=== PATIENT | female | born 1985 | race Caucasian/White ===

== ENCOUNTER 2016-05-30 13:02 | Emergency (ER) | payer OTHER ==
[2016-05-30 13:08] VITALS: BP 166/86; BMI 64.9
--- NOTE | 2016-05-30 15:07 | DR.GENAD ---
HPI - PCP Primary Care Physician: ZANA - Complaint/Symptoms Chief Complaint Doctors Comments: Patient admits to headache, chills, myalgias for two days. Chief Complaint:: CHEST AND NASAL CONGESTION, HEADACHE - Source History Provided: Patient - Mode of Arrival Mode of Arrival: Ambulatory - Timing Onset of Chief Complaint: 05/28/16 PMH - PMH Past Medical History: No Past Medical History: Anxiety Past Surgical History: Yes Surgical History: , Ortho Surgery - Family History History of Family Medical Conditions: No - Social History Alcohol Use: None Do you use any recreational Drugs:: No Lives With: Family Lives Where: Home - infectious screening In the last 2 months have you had wt loss of >10#?: NO Have you had fever, night sweats or hemotysis?: No Have you traveled outside the country in the last 6 months?: No Isolation: Standard ROS - Review of Systems Constitutional: No Symptoms Reported Eyes: No Symptoms Reported ENTM: No Symptoms Reported Respiratoy: No Symptoms Reported Cardiovascular: No Symptoms Reported Gastrointestinal/Abdominal: No Symptoms Reported Genitourinary: No Symptoms Reported Neurological: Headache Musculoskeletal: Muscle Pain Integumentary: No Symptoms Reported Hematologic/Lymphatic: No Symptoms Reported Endocrine: No Symptoms Reported Psychiatric: No Symptoms Reported All Other Systems: Reviewed and Negative PE - Vital Signs Vitals: Temperature 99.0 F Pulse Rate 108 Respiratory Rate 16 Blood Pressure 166/86 O2 Sat by Pulse Oximetry 96 - General Limitations: No Limitations General Appearance: Alert - Eyes Eye exam: Normal Appearance, PERRL, EOMI - ENT ENT Exam: Normal Exam External Ear Exam: Normal External Inspection TM/Canal Exam: Bilateral Normal Nose Exam: Normal Nose Exam Mouth Exam: Normal Inspection Throat Exam: Normal Inspection - Neck Neck Exam: Normal Inspection - Chest Chest Inspection: Normal Inspection - Respiratory Respiratory Exam: Bilateral Clear to Auscultation - Cardiovascular Cardiovascular Exam: Regular Rate, Normal Rhythm - Abdominal Exam Abdominal Exam: Normal Inspection Abdominal Tenderness: negative: RUQ, RLQ, LUQ, LLQ, Epigastrium, Suprapubic, Diffuse, Mild, Moderate, Severe, Other - Extremities Extremities Exam: Normal Inspection - Back Back Exam: Normal Inspection - Neurologic Neurological Exam: Alert, Oriented X3, CN II-XII Intact - Psychiatric Psychiatric Exam: Normal Affect, Normal Mood - Skin Skin Exam: Warm, Dry, Intact - Diagnosis Discharge Problem: Influenza-like symptoms - Discharge Plan Condition: Stable - Follow ups/Referrals Follow ups/Referrals: Rubin SPANN [Primary Care Provider] - 3 days - Instructions
== END 2016-05-30 15:36 | disposition home or self-care (01) ==
LOC: ER 13:18
DX: J11.1 Influenza due to unidentified influenza virus with other respiratory manifestations (principal)
CPT/HCPCS: 87502; 87503; 99282

== ENCOUNTER 2016-11-17 07:31 | Emergency (ER) | payer OTHER ==
[2016-11-17 07:39] VITALS: BP 179/94; BMI 58.2
[2016-11-17 08:49] LABS: BASOPHILS % (AUTO) 0.6 % (0.2-1.0); EOSINOPHILS # (AUTO) 0.2 x10^3/uL (0.0-0.2); EOSINOPHILS % (AUTO) 2.5 % (0.9-2.9); HEMATOCRIT 37.4 % (36.0-47.0); LYMPHOCYTES # (AUTO) 2.1 X10^3/uL (1.3-2.9); LYMPHOCYTES % (AUTO) 29.8 % (21.0-51.0); MEAN CORPUSCULAR HEMOGLOBIN 32.7 pg (27.0-34.0); MEAN CORPUSCULAR HGB CONC 34.8 g/dL (33.0-35.0); MEAN CORPUSCULAR VOLUME 93.9 fL (80.0-100.0); MEAN PLATELET VOLUME 7.8 fL (7.4-11.0); MONOCYTES # (AUTO) 0.5 x10^3/uL (0.3-0.8); NEUTROPHILS # (AUTO) 4.3 x10^3/uL (2.2-4.8); NEUTROPHILS % (AUTO) 60.1 % (42.0-75.0); PLATELET COUNT 289 X10^3/uL (150.0-450.0); RED BLOOD COUNT 3.98 X10^6/uL (3.5-5.4); RED CELL DISTRIBUTION WIDTH 13.3 % (11.6-16.5); WHITE BLOOD COUNT 7.1 X10^3/uL (3.6-10.0)
--- NOTE | 2016-11-17 08:53 | DR.GENAD ---
HPI - HPI Comment HPI Comment: PATIENT DENIES FEVER. PAIN WORSE TODAY. - Complaint/Symptoms Chief Complaint Doctors Comments: SWELLING, REDNESS AND INCREASE IN TEMP ON LEGS TIMES 6 DAYS. REDNESS EXTENDING. Chief Complaint:: "For about 6 days my legs have been swelling and getting red. I also had a small mosquito bite that seems to be draining some clear discharge. My legs usually swells, but they never look shiny like this and they never feel hot." - Nurses notes reviewed Nurses Notes Review: Yes - Source History Provided: Patient - Mode of Arrival Mode of Arrival: Ambulatory - Timing Onset of Chief Complaint: 11/11/16 Came on: Suddenly - Duration Duration: Constant Duration: Days - Severity Severity: Moderate PMH - PMH Past Medical History: Yes Past Medical History: Anxiety Past Surgical History: Yes Surgical History: , Ortho Surgery Past Surgical History Comment: Right elbow ortho surgery - Family History History of Family Medical Conditions: Yes Family Medical History: Diabetes Mellitus, Cancer, Hypertension - Social History Does patient currently use any type of tobacco product: No Have you used tobacco products in the last 12 months: No Type of Tobacco Use: None Does any household member use tobacco: No Alcohol Use: None Do you use any recreational Drugs:: No Lives With: Family Lives Where: Home - infectious screening In the last 2 months have you had wt loss of >10#?: NO Have you had fever, night sweats or hemotysis?: No Have you traveled outside the country in the last 6 months?: No Isolation: Standard ROS - Review of Systems Constitutional: No Symptoms Reported Eyes: No Symptoms Reported ENTM: No Symptoms Reported Respiratoy: No Symptoms Reported Cardiovascular: No Symptoms Reported Gastrointestinal/Abdominal: No Symptoms Reported Genitourinary: No Symptoms Reported Neurological: No Symptoms Reported Musculoskeletal: Leg Integumentary: Other (SWELLING ANDC REDNESS LEGS AND FEET. PULSES INTACT.) Hematologic/Lymphatic: No Symptoms Reported Endocrine: No Symptoms Reported All Other Systems: Reviewed and Negative PE - Vital Signs Vitals: Temperature 98.5 F Pulse Rate 80 Respiratory Rate 18 Blood Pressure 179/94 O2 Sat by Pulse Oximetry 99 - General Limitations: No Limitations General Appearance: Alert - Head Head Exam: Normal Inspection - Eyes Eye exam: Normal Appearance - ENT ENT Exam: Normal External Ear Exam External Ear Exam: Normal External Inspection TM/Canal Exam: Left Normal Nose Exam: Normal Nose Exam Mouth Exam: Normal Inspection Throat Exam: Normal Inspection - Neck Neck Exam: Normal Inspection - Chest Chest Inspection: Normal Inspection - Respiratory Respiratory Exam: Normal Lung Sounds Bilat Respiratory Exam: Bilateral Clear to Auscultation - Cardiovascular Cardiovascular Exam: Regular Rate, Normal Rhythm, Normal Heart Sounds - Abdominal Exam Abdominal Exam: Normal Bowel Sounds, Soft. negative: Tenderness - Extremities Extremities Exam: Tenderness (LEGS AND FEET.) - Back Back Exam: Normal Inspection - Neurologic Neurological Exam: Alert, Oriented X3 - Psychiatric Psychiatric Exam: Normal Affect, Normal Mood - Skin Skin Exam: Erythema MDM - Differential Diagnosis Differential Diagnosis: CELLULITIS, DVT, EDEMA Course - Treatment Treatment: SEE ORDERS. - Education/Counseling Education/Counseling: Patient, Education Educated On: Diagnosis, Needs for Follow Up ROR - Labs Reviewed Laboratory Results Reviewed?: Yes Result Diagrams: 11/17/16 08:30 Laboratory: WBC 7.1 X10^3/uL (3.6-10.0) 11/17/16 08:30 RBC 3.98 X10^6/uL (3.5-5.4) 11/17/16 08:30 Hgb 13.0 g/dL (12.0-16.0) 11/17/16 08:30 Hct 37.4 % (36.0-47.0) 11/17/16 08:30 MCV 93.9 fL (80.0-100.0) 11/17/16 08:30 MCH 32.7 pg (27.0-34.0) 11/17/16 08:30 MCHC 34.8 g/dL (33.0-35.0) 11/17/16 08:30 RDW 13.3 % (11.6-16.5) 11/17/16 08:30 Plt Count 289 X10^3/uL (150.0-450.0) 11/17/16 08:30 MPV 7.8 fL (7.4-11.0) 11/17/16 08:30 Neut % 60.1 % (42.0-75.0) 11/17/16 08:30 Lymph % 29.8 % (21.0-51.0) 11/17/16 08:30 [place] % 7.0 % (0.0-13.0) 11/17/16 08:30 Eos % 2.5 % (0.9-2.9) 11/17/16 08:30 Baso % 0.6 % (0.2-1.0) 11/17/16 08:30 Neut # 4.3 x10^3/uL (2.2-4.8) 11/17/16 08:30 Lymph # 2.1 X10^3/uL (1.3-2.9) 11/17/16 08:30 [place] # 0.5 x10^3/uL (0.3-0.8) 11/17/16 08:30 Eos # 0.2 x10^3/uL (0.0-0.2) 11/17/16 08:30 Baso # 0.0 X10^3/uL (0.0-0.1) 11/17/16 08:30 Absolute Nucleated RBC 0.0 /100WBC 11/17/16 08:30 D-Dimer 254 ng/mL (0-400) 11/17/16 08:30 - Diagnosis Discharge Problem: Cellulitis of lower extremity Qualifiers: Laterality: right Qualified Code(s): L03.115 - Cellulitis of right lower limb - Discharge Plan Condition: Stable Prescriptions: Acetaminophen with Codeine [Tylenol/Codeine #3 300-30 mg] 1 tab PO Q4-6H PRN # 12 tab PRN Reason: Pain Clindamycin HCl 300 mg PO Q6H #40 cap Ibuprofen [MOTRIN TAB 800 MG *] 800 mg PO Q8H PRN #20 tab PRN Reason: Pain/Inflammation - Follow ups/Referrals Follow ups/Referrals: Rubin SPANN [Primary Care Provider] - 3 days - Instructions Instructions: Cellulitis, Adult, [id number] Additional Instructions: RETURN TO ED IF WORSE.
== END 2016-11-17 10:09 | disposition home or self-care (01) ==
LOC: ER 07:44
DX: L03.115 Cellulitis of right lower limb (principal)
CPT/HCPCS: 36415; 85025; 85378; 99282

== ENCOUNTER 2017-11-22 06:20 | Inpatient (IN) ==
[2017-11-22] MEDS ORDERED: SOLU-Medrol 125 MG VIAL IVP ONE (06:36)
[2017-11-22] MEDS ORDERED: DUONEB 0.5 MG/3 MG NEB ONE ×2 (06:36→07:04)
[2017-11-22] MEDS ORDERED: SOLU-Medrol 125 MG VIAL ONE (06:39)
[2017-11-22] MEDS ORDERED: DUONEB 0.5 MG/3 MG ONE ×2 (06:39→07:10)
[2017-11-22] MEDS ORDERED: NS 1000 ML 1,000 ML ONE ×2 (06:49→11:35)
--- NOTE | 2017-11-22 06:49 | DR.SOBA ---
HPI Time Seen Time Seen by Provider: 11/22/17 06:33 Complaints Chief Complaint Doctors Comments: Patient presents to the ED with a one week history of upper respiratory problems. Today she became severe short of breath. She denies fever, some or previous respiratory illness. PMH PMH Past Medical History: Anxiety Past Surgical History: Yes Surgical History: and Ortho Surgery Family History Family Medical History: Diabetes Mellitus, Cancer and Hypertension Social History Do you use any recreational Drugs:: No PE Vital Signs Vitals: Temperature 100.1 F Pulse Rate [Right Brachial] 119 Pulse Rate 123 Respiratory Rate 28 Blood Pressure [Right Arm] 126/71 Blood Pressure 137/91 O2 Sat by Pulse Oximetry 89 General Limitations: No Limitations; negative Altered Mental Status General Appearance: Alert, Anxious and In Distress Head Head Exam: Normal Inspection and Atraumatic Eyes Eye exam: Normal Appearance, PERRL, EOMI and Scleral Icterus ENT ENT Exam: Normal Exam, Normal Oropharynx, Mucous Membranes Moist, Mucous Membranes Dry and TM's Normal Bilaterally Neck Neck Exam: Normal Inspection and Full ROM Chest Chest Inspection: Normal Inspection Respiratory Respiratory Exam: Normal Lung Sounds Bilat (decreased), Accessory Muscle Use and Prolonged Expiratory Phase Respiratory Exam: Bilateral: Wheezing and Bilateral: Decreased Breath Sounds Cardiovascular Cardiovascular Exam: Regular Rate and Normal Rhythm Abdominal Exam Abdominal Exam: Normal Inspection, Soft, Distention and Hypoactive Bowel Sounds Extremities Extremities Exam: Normal Inspection and Full ROM Back Back Exam: Normal Inspection and Full ROM Neurologic Neurological Exam: Alert, Oriented X3 and CN II-XII Intact Psychiatric Psychiatric Exam: Normal Affect, Normal Mood and Agitated Skin Skin Exam: Warm, Dry and Normal Color COURSE Treatment Treatment: Patient in respiratory distress given duo neb treatment with little improvement ABG obtained, started on Bipap Reevaluation 1st: Improved Consultation Called: 08:00 Consultation Comments: Dr. Benitez agree to admit for further evaluation and treatment ROR Labs Reviewed Laboratory Results Reviewed?: Yes Result Diagrams: 11/22/17 06:33 11/22/17 06:33 Laboratory: 11/22/17 07:39 Sputum - Expectorated Sputum Sputum Culture - Preliminary 11/22/17 07:39 Sputum - Expectorated Sputum - Final 11/22/17 07:38 Urine,Catheterized Urine Culture - Final WBC 18.9 X10^3/uL (3.6-10.0) H 11/22/17 06:33 RBC 4.47 X10^6/uL (3.5-5.4) 11/22/17 06:33 Hgb 15.1 g/dL (12.0-16.0) 11/22/17 06:33 Hct 42.5 % (36.0-47.0) 11/22/17 06:33 MCV 95.1 fL (80.0-100.0) 11/22/17 06:33 MCH 33.7 pg (27.0-34.0) 11/22/17 06:33 MCHC 35.5 g/dL (33.0-35.0) H 11/22/17 06:33 RDW 13.0 % (11.6-16.5) 11/22/17 06:33 Plt Count 402 X10^3/uL (150.0-450.0) 11/22/17 06:33 MPV 8.2 fL (7.4-11.0) 11/22/17 06:33 Neut % (Auto) 80.1 % (42.0-75.0) H 11/22/17 06:33 Lymph % (Auto) 10.2 % (21.0-51.0) L 11/22/17 06:33 [place] % (Auto) 9.2 % (0.0-13.0) 11/22/17 06:33 Eos % (Auto) 0.0 % (0.9-2.9) L 11/22/17 06:33 Baso % (Auto) 0.5 % (0.2-1.0) 11/22/17 06:33 Neut # (Auto) 15.1 x10^3/uL (2.2-4.8) H 11/22/17 06:33 Lymph # (Auto) 1.9 X10^3/uL (1.3-2.9) 11/22/17 06:33 [place] # (Auto) 1.7 x10^3/uL (0.3-0.8) H 11/22/17 06:33 Eos # (Auto) 0.0 x10^3/uL (0.0-0.2) 11/22/17 06:33 Baso # (Auto) 0.1 X10^3/uL (0.0-0.1) 11/22/17 06:33 Absolute Nucleated RBC 0.0 /100WBC 11/22/17 06:33 Fibrinogen 1077 mg/dL (239-489) H 11/22/17 06:33 D-Dimer 924 ng/mL (0-400) H* 11/22/17 06:33 Sample Site Left radial 11/22/17 11:38 ABG pH 7.360 (7.35-7.45) 11/22/17 11:38 ABG pCO2 63.0 mmHg (35.0-45.0) H* 11/22/17 11:38 ABG pO2 65.0 mmHg (80.0-100.0) L 11/22/17 11:38 ABG HCO3 35.6 mmol/L (22-26) H* 11/22/17 11:38 ABG O2 Saturation 92.0 % (90-100) 11/22/17 11:38 ABG Base Excess 8.1 mmol/L (-2.0-2.0) H 11/22/17 11:38 Jef Test Pos 11/22/17 11:38 A-a Gradient 106.0 mmHg 11/22/17 11:38 FiO2 35 11/22/17 11:38 Blood Gas Comments To well ej 11/22/17 11:38 Sodium 139 mmol/L (136-145) 11/22/17 06:33 Corrected Sodium 140 mmol/L (136-145) 11/22/17 06:33 Potassium 3.5 mmol/L (3.5-5.1) 11/22/17 06:33 Chloride 96 mmol/L (98-107) L 11/22/17 06:33 Carbon Dioxide 30.1 mmol/L (21-32) 11/22/17 06:33 BUN 6 mg/dL (7-18) L 11/22/17 06:33 Creatinine 0.84 mg/dL (0.55-1.02) 11/22/17 06:33 Est GFR (MDRD) Af Amer > 60 (>60) 11/22/17 06:33 Est GFR (MDRD) Non-Af > 60 (>60) 11/22/17 06:33 Glucose 162 mg/dL (65-99) H 11/22/17 06:33 Lactic Acid 0.8 mmol/L (0.4-2.0) 11/22/17 06:33 Calcium 9.3 mg/dL (8.5-10.1) 11/22/17 06:33 Corrected Calcium 9.9 mg/dL (8.5-10.1) 11/22/17 06:33 Total Bilirubin 0.40 mg/dL (0.2-1.0) 11/22/17 06:33 AST 30 Units/L (15-37) 11/22/17 06:33 ALT 26 Units/L (12-78) 11/22/17 06:33 Alkaline Phosphatase 82 Units/L (46-116) 11/22/17 06:33 Creatine Kinase 531 Units/L (26-192) H 11/22/17 12:21 CK-MB (CK-2) 1.2 ng/mL (0-4.0) 11/22/17 12:21 CK/CKMB % Calc 0.2 % (<4) 11/22/17 12:21 Troponin I < 0.02 ng/mL (0-1.5) 11/22/17 12:21 B-Natriuretic Peptide 77.3 pg/mL (0-79) 11/22/17 06:33 Total Protein 8.9 g/dL (6.4-8.2) H 11/22/17 06:33 Albumin 3.3 g/dL (3.4-5.0) L 11/22/17 06:33 Globulin 5.6 g/dL (2.5-4.5) H 11/22/17 06:33 Albumin/Globulin Ratio 0.6 Ratio (1.1-2.1) L 11/22/17 06:33 Specimen Type Catherized urine 11/22/17 07:38 Urine Color Yellow (YELLOW) 11/22/17 07:38 Urine Appearance Slightly hazy (CLEAR) 11/22/17 07:38 Urine pH 6.5 (5.0 - 8.0) 11/22/17 07:38 Ur Specific [place] 1.010 (1.000-1.030) 11/22/17 07:38 Urine Protein 4+ (NEGATIVE) 11/22/17 07:38 Urine Glucose (UA) Negative (NEGATIVE) 11/22/17 07:38 Urine Ketones Negative (NEGATIVE) 11/22/17 07:38 Urine Occult Blood 4+ (NEGATIVE) 11/22/17 07:38 Urine Nitrite Negative (NEGATIVE) 11/22/17 07:38 Urine Bilirubin Negative (NEGATIVE) 11/22/17 07:38 Urine Urobilinogen 2+ (NORMAL) 11/22/17 07:38 Ur Leukocyte Esterase 1+ (NEGATIVE) 11/22/17 07:38 Urine RBC 5-10 /HPF (NONE SEEN) 11/22/17 07:38 Urine WBC 3-5 /HPF (NONE SEEN) 11/22/17 07:38 Ur Squamous Epith Cells Few /HPF (NEGATIVE) 11/22/17 07:38 Amorphous Sediment Trace /HPF (NEGATIVE) 11/22/17 07:38 Urine Bacteria Trace /HPF (NEGATIVE) 11/22/17 07:38 Hyaline Casts Few /LPF (NEGATIVE) 11/22/17 07:38 Urine Mucus Few /HPF (NEGATIVE) 11/22/17 07:38 Ur Culture Indicated? No/not indicated 11/22/17 07:38 Influenza Type A (PCR) Negative (NEGATIVE) 11/22/17 07:54 Influenza Type B (PCR) Negative (NEGATIVE) 11/22/17 07:54 Mycoplasma pneumon IgG Negative (NEGATIVE) 11/22/17 06:33 Other Results Comments: Chest; The lungs are grossly clear and the heart and mediastinum are unremarkable. No edema or effusion is demonstrated. No acute cardiopulmonary disease. EKG Rate: 59 Rhythm: NSR Hypertrophy: LAE and LVH Procedures Procedure Comments Procedures: BiPap ADDITIONAL NOTES Additional Notes Additional Notes: Patient admitted for further evaluation
[2017-11-22] MEDS: NS 100 ML IV 100 ML IV SCH ×2 (06:50→10:32)
[2017-11-22] MEDS ORDERED: ZOFRAN INJ 4 MG VIAL IVP ONE (06:54)
[2017-11-22] MEDS ORDERED: ZOFRAN INJ 4 MG VIAL ONE (06:54)
--- NOTE | 2017-11-22 06:55 | RAD ---
History: Dyspnea Study: AP chest Comparison: None Findings: The lungs are grossly clear and the heart and mediastinum are unremarkable. No edema or eff usion is demonstrated. Impression: No acute cardiopulmonary disease Reported By:
[2017-11-22 07:06] LABS: BASOPHILS # (AUTO) 0.1 X10^3/uL (0.0-0.1); BASOPHILS % (AUTO) 0.5 % (0.2-1.0); HEMATOCRIT 42.5 % (36.0-47.0); HEMOGLOBIN 15.1 g/dL (12.0-16.0); LYMPHOCYTES # (AUTO) 1.9 X10^3/uL (1.3-2.9); LYMPHOCYTES % (AUTO) 10.2 % (21.0-51.0); MEAN CORPUSCULAR HEMOGLOBIN 33.7 pg (27.0-34.0); MEAN CORPUSCULAR HGB CONC 35.5 g/dL (33.0-35.0); MEAN CORPUSCULAR VOLUME 95.1 fL (80.0-100.0); MEAN PLATELET VOLUME 8.2 fL (7.4-11.0); MONOCYTES # (AUTO) 1.7 x10^3/uL (0.3-0.8); MONOCYTES % (AUTO) 9.2 % (0.0-13.0); NEUTROPHILS # (AUTO) 15.1 x10^3/uL (2.2-4.8); NEUTROPHILS % (AUTO) 80.1 % (42.0-75.0); PLATELET COUNT 402 X10^3/uL (150.0-450.0); RED BLOOD COUNT 4.47 X10^6/uL (3.5-5.4); WHITE BLOOD COUNT 18.9 X10^3/uL (3.6-10.0)
[2017-11-22 07:17] LABS: ABG BASE EXCESS 10.8 mmol/L (-2.0-2.0); ABG HCO3 38.1 mmol/L (22-26); FRACTIONATED INSPIRED OXYGEN 36
[2017-11-22 07:18] LABS: ABG ALLEN TEST POS
[2017-11-22 07:26] LABS: CKMB % 0.2 % (<4); CREATINE KINASE 599 Units/L (26-192); CREATINE KINASE MB 1.3 ng/mL (0-4.0); TROPONIN I < 0.02 ng/mL (0-1.5)
[2017-11-22 07:50] LABS: BILIRUBIN,URINE NEGATIVE (NEGATIVE); BLOOD/HEMOGLOBIN,URINE 4+ (NEGATIVE); GLUCOSE, URINE NEGATIVE (NEGATIVE); KETONES,URINE NEGATIVE (NEGATIVE); LEUKOCYTE ESTERASE ,URINE 1+ (NEGATIVE); NITRITES,URINE NEGATIVE (NEGATIVE); PH,URINE 6.5 (5.0 - 8.0); PROTEIN,URINE 4+ (NEGATIVE); UROBILINOGEN,URINE 2+ (NORMAL)
[2017-11-22 07:59] LABS: APPEARANCE,URINE SLIGHTLY HAZY (CLEAR); BACTERIA,URINE TRACE /HPF (NEGATIVE); COLOR,URINE YELLOW (YELLOW); SQUAMOUS EPITHELIAL CELL,UR FEW /HPF (NEGATIVE)
[2017-11-22 08:00] LABS: AMORPHOUS SEDIMENT,UR TRACE /HPF (NEGATIVE); HYALINE CASTS, URINE FEW /LPF (NEGATIVE); MUCUS,URINE FEW /HPF (NEGATIVE)
[2017-11-22 08:06] LABS: ALANINE AMINOTRANSFERASE 26 Units/L (12-78); ALBUMIN 3.3 g/dL (3.4-5.0); ALKALINE PHOSPHATASE 82 Units/L (46-116); ASPARTATE AMINO TRANSFERASE 30 Units/L (15-37); BLOOD UREA NITROGEN 6 mg/dL (7-18); CALCIUM 9.3 mg/dL (8.5-10.1); CARBON DIOXIDE 30.1 mmol/L (21-32); CHLORIDE 96 mmol/L (98-107); COR CA(FOR HYPOALB) 9.9 mg/dL (8.5-10.1); COR NA(FOR HYPERGLY) 140 mmol/L (136-145); CREATININE 0.84 mg/dL (0.55-1.02); SODIUM 139 mmol/L (136-145); TOTAL PROTEIN 8.9 g/dL (6.4-8.2); eGFR NON BLACK RACES > 60 (>60)
[2017-11-22 08:12] LABS: B-TYPE NATRIURETIC PEPTIDE 77.3 pg/mL (0-79)
[2017-11-22 08:32] LABS: LACTIC ACID 0.8 mmol/L (0.4-2.0)
[2017-11-22] MEDS ORDERED: TYLENOL SUPP 650 MG PR PRN (08:37)
[2017-11-22] MEDS ORDERED: NORCO 5/325 MG TAB PO PRN (08:37)
[2017-11-22] MEDS ORDERED: ZOFRAN TAB 4 MG SL PRN (08:37)
[2017-11-22] MEDS ORDERED: ULTRAM PO PRN (08:37)
[2017-11-22] MEDS ORDERED: PHENERGAN INJ 25 MG IV PRN (08:37)
[2017-11-22] MEDS ORDERED: MORPHINE SULFATE INJ 2 MG INJ IVP PRN (08:37)
[2017-11-22 09:07] LABS: ABG BASE EXCESS 9.7 mmol/L (-2.0-2.0)
[2017-11-22 09:08] LABS: ABG ALLEN TEST POS; ABG HCO3 36.5 mmol/L (22-26); FRACTIONATED INSPIRED OXYGEN 35
[2017-11-22] MEDS ORDERED: NORCO 10/325 TAB ONE (10:12)
[2017-11-22 10:21] VITALS: BMI 61.4
--- NOTE | 2017-11-22 10:28 | CT ---
History: Elevated D-dimer and shortness of breath Study: CTA chest utilizing 75 mL Omnipaque 350 IV contrast. Sagittal and coronal and axial MIPS of th e pulmonary arteries were displayed. Comparison: None Findings: There are multifocal patchy infiltrates in the left upper and lower lobe and there is a sma ll focus posteriorly in the right upper lobe. There is no pleural effusion. There is subsegmental ate lectasis anteriorly in the right middle lobe. No pulmonary embolus is demonstrated. The visualized up per abdomen is unremarkable except for a partially visualized calculus in the upper pole of the left kidney measuring over a cm in diameter. Impression: 1. No evidence for pulmonary embolus 2. Multifocal pneumonia primarily in the left lung 3. Subsegmental atelectasis in the right middle lobe anteriorly 4. Large partially visualized calculus in the upper pole of the left kidney Reported By:
[2017-11-22] MEDS ORDERED: FLEXERIL TAB 10 MG PO PRN (10:54)
[2017-11-22] MEDS ORDERED: XANAX PO PRN (10:54)
[2017-11-22] MEDS ORDERED: ZITHROMAX INJ 500 MG VIAL 500 MG in NS 250 ML IV 250 ML IV SCH (11:16)
[2017-11-22] MEDS ORDERED: MAXIPIME 2 GM IVP SCH (12:00)
[2017-11-22] MEDS ORDERED: LEVAQUIN PREMIX IV 500 MG 500 MG/100 ML BAG IV SCH (12:00)
[2017-11-22] MEDS ORDERED: PROVENTIL NEB TX 0.083% 2.5MG/ 3ML NEB PRN (12:00)
[2017-11-22] MEDS ORDERED: NS 1000 ML 1,000 ML IV SCH (12:00)
[2017-11-22 12:54] LABS: CKMB % 0.2 % (<4); CREATINE KINASE 531 Units/L (26-192); CREATINE KINASE MB 1.2 ng/mL (0-4.0); TROPONIN I < 0.02 ng/mL (0-1.5)
[2017-11-22] MEDS ORDERED: DUONEB 0.5 MG/3 MG NEB SCH (13:00)
[2017-11-22] MEDS ORDERED: BROVANA IN SCH (13:15)
[2017-11-22] MEDS ORDERED: PULMICORT NEB TX 0.5 MG NEB SCH (13:15)
--- NOTE | 2017-11-22 13:22 | DR.H&P ---
<TERRY ARGUELLES - Last Filed: 11/22/17 13:16> H&P - History & Physical for Day of: H&P Date: 11/22/17 - Chief Complaint Chief Complaint: SOB - Allergies Allergies/Adverse Reactions: Allergies Allergy/AdvReac Type Severity Reaction Status Date / Time No Known Drug Allergies Allergy Verified 11/17/16 07:34 - History of Present Illness History of Present Illness: 32 WF ER ADMISSION AFTER PRESENTING WITH SOB. PT STATES SHE HAS HAD UPPER RESP SYMPTOMS FOR ONE WEEK- HER SON WAS SICK WITH "RESPIRATORY INFECTION" ONE WEEK AGO. PT DENIES ANY TREATMENT PRIOR TO ARRIVAL, DENIES ASTHMA OR COPD, OCCASSIONAL SMOKER. PT IS MORBIDLY OBESE, PCP DR SPANN HAS HX CHRONIC PAIN ON [place]. PT STATES SHE THOUGHT SHE WAS HAVING AN ANXIETY ATTACK THIS AM, BUT HER BREATHING NEVER IMPROVED. DENIES HX HTN OR DM. PT HAD CT CHEST WITH MULTI FOCAL LEFT LOBE PNEUMONIA. PT ABG IN ER PO2 57. PT PLACED ON BIPAP, ADMITTED ICU FOR TREATMENT OF RESP DISTRESS, PNEUMONIA - Past Medical History Past Medical History: Anxiety, Arthritis - Past Surgical History Surgical History: , Ortho Surgery - Family History Family Medical History: Diabetes Mellitus, Cancer, Hypertension - Social History Does patient currently use any type of tobacco product: Yes Have you used tobacco products in the last 12 months: Yes Type of Tobacco Use: Cigarettes How many years tobacco product used: 15 Packs per day or dips/chews per day: 1 Does any household member use tobacco: No Alcohol Use: None Drug Use: None - Medications Home Medications: No Known Drug Allergies Allergy (Verified 11/17/16 07:34) CONTINUE taking the following medications alprazolam 1 mg PO BID PRN 11/22/17 [History] cyclobenzaprine 10 mg PO BID PRN 11/22/17 [History] gabapentin 600 mg PO BID PRN 11/22/17 [History] hydrocodone-acetaminophen 10 mg PO TID 11/22/17 [History] - Review of Systems Constitutional: Weakness, Malaise Eyes: No Symptoms Reported ENT: No Symptoms Reported Respiratory: Shortness of Breath, Wheezing Cardiovascular: Edema Gastrointestinal: Nausea, Other (NO APPETITE, "HARDLY ATE ALL WEEK") Genitourinary: No Symptoms Reported Musculoskeletal: Shoulder Pain, Arm Pain Skin: No Symptoms Reported Neurological: Weakness (MILD GENERALIZED WEAKNESS) - Physical Exam Vital Signs: Temperature 100.1 F Pulse Rate [Right Brachial] 119 Pulse Rate 119 Respiratory Rate 28 Blood Pressure [Right Arm] 126/71 Blood Pressure 153/83 O2 Sat by Pulse Oximetry 86 Oriented: Normal, Other (RESP DISTRESS NOTED, USE OF ACCESSORY MUSCLES) Eyes: Normal Ear: Normal Nose: Normal Throat: Normal Respiratory: Wheezes Throughout, RLL Diminished, LML Diminished, LLL Diminished Cardiovascular: Tachycardia, Edema (MILD BILATERAL LE EDEMA + 1) Auscultation: Bowel Sounds: Normal Palpation: Normal Tenderness: Normal Skin: Diaphoresis (MILD) Musculoskeletal: Left, Shoulder Psychiatric: Anxiety Affect: Angry Speech Pattern: Appropriate - Assessment/Plan (1) Acute respiratory distress Status: Acute Plan: ADMIT ICU, IV SOLU MEDROL. IV LEVAQUIN, ZITHROMAX. PNEUMONIA PROTOCOL, SPUTUM AND BLOOD CULTLURES. BIPAP, AGRESSIVE RESP THERAPY. FLU NEG IN ER, MYCOPLASMA RESP SWAB. CONTIUOUS CARDIAC MONITORING, SUPPLEMENTAL O2. JET NEBS, DISCUSSED POSSIBLE TRANSFER TO TERTIARY CARE WITH PT FOR SPECILATY CARE, [employer] (2) Pneumonia Status: Acute (3) Hypotension Status: Acute (4) Hypoxemia Status: Acute (5) Morbid obesity Status: Acute <NIYA DE LA GARZA - Last Filed: 11/22/17 13:44> H&P - Medications Home Medications: No Known Drug Allergies Allergy (Verified 11/17/16 07:34) CONTINUE taking the following medications alprazolam 1 mg PO BID PRN 11/22/17 [History] cyclobenzaprine 10 mg PO BID PRN 11/22/17 [History] gabapentin 600 mg PO BID PRN 11/22/17 [History] hydrocodone-acetaminophen 10 mg PO TID 11/22/17 [History] - Review of Systems Constitutional: See HPI Respiratory: See HPI - Physical Exam Vital Signs: Temperature 100.1 F Pulse Rate [Right Brachial] 119 Pulse Rate 119 Respiratory Rate 28 Blood Pressure [Right Arm] 126/71 Blood Pressure 153/83 O2 Sat by Pulse Oximetry 86
[2017-11-22] MEDS ORDERED: PROTONIX INJ 40 MG VIAL IVP SCH (14:00)
[2017-11-22] MEDS ORDERED: SOLU-Medrol 125 MG VIAL IVP SCH (14:00)
[2017-11-22] MEDS ORDERED: NORCO 10/325 TAB PO SCH (14:00)
[2017-11-22] MEDS ORDERED: HALDOL INJ ONE (14:01)
[2017-11-22] MEDS ORDERED: HALDOL INJ IVP ONE (14:11)
[2017-11-22 14:49] LABS: MYCOPLASMA PNEUMONIAE IGM AB NEGATIVE (NEGATIVE)
[2017-11-22 14:52] LABS: ABG BASE EXCESS 8.1 mmol/L (-2.0-2.0)
[2017-11-22 14:53] LABS: ABG ALLEN TEST POS; ABG HCO3 35.6 mmol/L (22-26); FRACTIONATED INSPIRED OXYGEN 35
[2017-11-22 15:33] VITALS: BP 137/91
--- NOTE | 2018-01-07 08:31 | PCM.DCPLAN ---
Discharge Summary - Admission Date Date of Admission: 11/22/17 - Discharge Date Discharge Date: 11/22/17 - Admission Diagnoses (1) Acute respiratory distress Status: Acute (2) Hypoxemia Status: Acute (3) Morbid obesity Status: Acute (4) Pneumonia Status: Acute - Discharge Diagnoses Discharge Diagnosis: SAME ADMISSION DIAGNOSIS - Discharge Medications Discharge Medications: Home Medication List alprazolam 1 mg PO BID PRN 11/22/17 [History] cyclobenzaprine 10 mg PO BID PRN 11/22/17 [History] gabapentin 600 mg PO BID PRN 11/22/17 [History] hydrocodone-acetaminophen 10 mg PO TID 11/22/17 [History] Prescriptions: - Hospital Course Vital Signs: Temperature 100.1 F Pulse Rate [Right Brachial] 119 Pulse Rate 123 Respiratory Rate 28 Blood Pressure [Right Arm] 126/71 Blood Pressure 137/91 O2 Sat by Pulse Oximetry 89 Latest Lab Results: Laboratory Last Values WBC 18.9 X10^3/uL (3.6-10.0) H 11/22/17 06:33 RBC 4.47 X10^6/uL (3.5-5.4) 11/22/17 06:33 Hgb 15.1 g/dL (12.0-16.0) 11/22/17 06:33 Hct 42.5 % (36.0-47.0) 11/22/17 06:33 MCV 95.1 fL (80.0-100.0) 11/22/17 06:33 MCH 33.7 pg (27.0-34.0) 11/22/17 06:33 MCHC 35.5 g/dL (33.0-35.0) H 11/22/17 06:33 RDW 13.0 % (11.6-16.5) 11/22/17 06:33 Plt Count 402 X10^3/uL (150.0-450.0) 11/22/17 06:33 MPV 8.2 fL (7.4-11.0) 11/22/17 06:33 Neut % (Auto) 80.1 % (42.0-75.0) H 11/22/17 06:33 Lymph % (Auto) 10.2 % (21.0-51.0) L 11/22/17 06:33 [place] % (Auto) 9.2 % (0.0-13.0) 11/22/17 06:33 Eos % (Auto) 0.0 % (0.9-2.9) L 11/22/17 06:33 Baso % (Auto) 0.5 % (0.2-1.0) 11/22/17 06:33 Neut # (Auto) 15.1 x10^3/uL (2.2-4.8) H 11/22/17 06:33 Lymph # (Auto) 1.9 X10^3/uL (1.3-2.9) 11/22/17 06:33 [place] # (Auto) 1.7 x10^3/uL (0.3-0.8) H 11/22/17 06:33 Eos # (Auto) 0.0 x10^3/uL (0.0-0.2) 11/22/17 06:33 Baso # (Auto) 0.1 X10^3/uL (0.0-0.1) 11/22/17 06:33 Absolute Nucleated RBC 0.0 /100WBC 11/22/17 06:33 Fibrinogen 1077 mg/dL (239-489) H 11/22/17 06:33 D-Dimer 924 ng/mL (0-400) H* 11/22/17 06:33 Sample Site Left radial 11/22/17 11:38 ABG pH 7.360 (7.35-7.45) 11/22/17 11:38 ABG pCO2 63.0 mmHg (35.0-45.0) H* 11/22/17 11:38 ABG pO2 65.0 mmHg (80.0-100.0) L 11/22/17 11:38 ABG HCO3 35.6 mmol/L (22-26) H* 11/22/17 11:38 ABG O2 Saturation 92.0 % (90-100) 11/22/17 11:38 ABG Base Excess 8.1 mmol/L (-2.0-2.0) H 11/22/17 11:38 Jef Test Pos 11/22/17 11:38 A-a Gradient 106.0 mmHg 11/22/17 11:38 FiO2 35 11/22/17 11:38 Blood Gas Comments To well ej 11/22/17 11:38 Sodium 139 mmol/L (136-145) 11/22/17 06:33 Corrected Sodium 140 mmol/L (136-145) 11/22/17 06:33 Potassium 3.5 mmol/L (3.5-5.1) 11/22/17 06:33 Chloride 96 mmol/L (98-107) L 11/22/17 06:33 Carbon Dioxide 30.1 mmol/L (21-32) 11/22/17 06:33 BUN 6 mg/dL (7-18) L 11/22/17 06:33 Creatinine 0.84 mg/dL (0.55-1.02) 11/22/17 06:33 Est GFR (MDRD) Af Amer > 60 (>60) 11/22/17 06:33 Est GFR (MDRD) Non-Af > 60 (>60) 11/22/17 06:33 Glucose 162 mg/dL (65-99) H 11/22/17 06:33 Lactic Acid 0.8 mmol/L (0.4-2.0) 11/22/17 06:33 Calcium 9.3 mg/dL (8.5-10.1) 11/22/17 06:33 Corrected Calcium 9.9 mg/dL (8.5-10.1) 11/22/17 06:33 Total Bilirubin 0.40 mg/dL (0.2-1.0) 11/22/17 06:33 AST 30 Units/L (15-37) 11/22/17 06:33 ALT 26 Units/L (12-78) 11/22/17 06:33 Alkaline Phosphatase 82 Units/L (46-116) 11/22/17 06:33 Creatine Kinase 531 Units/L (26-192) H 11/22/17 12:21 CK-MB (CK-2) 1.2 ng/mL (0-4.0) 11/22/17 12:21 CK/CKMB % Calc 0.2 % (<4) 11/22/17 12:21 Troponin I < 0.02 ng/mL (0-1.5) 11/22/17 12:21 B-Natriuretic Peptide 77.3 pg/mL (0-79) 11/22/17 06:33 Total Protein 8.9 g/dL (6.4-8.2) H 11/22/17 06:33 Albumin 3.3 g/dL (3.4-5.0) L 11/22/17 06:33 Globulin 5.6 g/dL (2.5-4.5) H 11/22/17 06:33 Albumin/Globulin Ratio 0.6 Ratio (1.1-2.1) L 11/22/17 06:33 Specimen Type Catherized urine 11/22/17 07:38 Urine Color Yellow (YELLOW) 11/22/17 07:38 Urine Appearance Slightly hazy (CLEAR) 11/22/17 07:38 Urine pH 6.5 (5.0 - 8.0) 11/22/17 07:38 Ur Specific [place] 1.010 (1.000-1.030) 11/22/17 07:38 Urine Protein 4+ (NEGATIVE) 11/22/17 07:38 Urine Glucose (UA) Negative (NEGATIVE) 11/22/17 07:38 Urine Ketones Negative (NEGATIVE) 11/22/17 07:38 Urine Occult Blood 4+ (NEGATIVE) 11/22/17 07:38 Urine Nitrite Negative (NEGATIVE) 11/22/17 07:38 Urine Bilirubin Negative (NEGATIVE) 11/22/17 07:38 Urine Urobilinogen 2+ (NORMAL) 11/22/17 07:38 Ur Leukocyte Esterase 1+ (NEGATIVE) 11/22/17 07:38 Urine RBC 5-10 /HPF (NONE SEEN) 11/22/17 07:38 Urine WBC 3-5 /HPF (NONE SEEN) 11/22/17 07:38 Ur Squamous Epith Cells Few /HPF (NEGATIVE) 11/22/17 07:38 Amorphous Sediment Trace /HPF (NEGATIVE) 11/22/17 07:38 Urine Bacteria Trace /HPF (NEGATIVE) 11/22/17 07:38 Hyaline Casts Few /LPF (NEGATIVE) 11/22/17 07:38 Urine Mucus Few /HPF (NEGATIVE) 11/22/17 07:38 Ur Culture Indicated? No/not indicated 11/22/17 07:38 Influenza Type A (PCR) Negative (NEGATIVE) 11/22/17 07:54 Influenza Type B (PCR) Negative (NEGATIVE) 11/22/17 07:54 Mycoplasma pneumon IgG Negative (NEGATIVE) 11/22/17 06:33 Hospital Course: 32 WF ER ADMISSION AFTER PRESENTING WITH SOB. PT STATES SHE HAS HAD UPPER RESP SYMPTOMS FOR ONE WEEK- HER SON WAS SICK WITH "RESPIRATORY INFECTION" ONE WEEK AGO. PT DENIES ANY TREATMENT PRIOR TO ARRIVAL, DENIES ASTHMA OR COPD, OCCASSIONAL SMOKER. PT IS MORBIDLY OBESE, PCP DR SPANN HAS HX CHRONIC PAIN ON [place]. PT STATES SHE THOUGHT SHE WAS HAVING AN ANXIETY ATTACK THIS AM, BUT HER BREATHING NEVER IMPROVED. DENIES HX HTN OR DM. PT HAD CT CHEST WITH MULTI FOCAL LEFT LOBE PNEUMONIA. PT ABG IN ER PO2 57. PT PLACED ON BIPAP, ADMITTED ICU FOR TREATMENT OF RESP DISTRESS, PNEUMONIA. TRANSFERRED WAS ARRANGED AND PATIENT WAS TRANSFERRED TO [facility] FOR FURTHER CARE. - Discharge Plan Disposition: [facility] Condition: Stable - Follow ups/Referrals Follow ups/Referrals: [facility] [Other] (PT TRANSFERRED VIA EMS TO STEPDOWN UNIT AT [facility]) NIYA DE LA GARZA [Primary Care Provider] - 1 WEEK - Instructions
== END 2017-11-22 15:00 | disposition short-term general hospital (02) | DRG 195 ==
LOC: ER 06:21 → ICU 08:40
PROVIDERS: ADMIT Internal Medicine; ATTEND Internal Medicine
DX: R06.02 Shortness of breath; F41.8 Other specified anxiety disorders; E66.01 Morbid (severe) obesity due to excess calories; I95.89 Other hypotension; J18.8 Other pneumonia, unspecified organism; R09.02 Hypoxemia; R53.1 Weakness; R06.03 Acute respiratory distress
CPT/HCPCS: 36415; 36600; 51702; 71010; 71045; 71275; 80053; 81001; 82550; 82553; 82803; 83605; 83880; 84484; 85025; 85378; 85384; 86738; 87040; 87070; 87077; 87086; 87185; 87186; 87205; 87502; 93005; 93010; 94640; 94660; 96365; 96374; 96375; 99284; 99285; A4222; A4618; A7030; J0456; J0692; J1630; J1956; J2405; J2550; J2930; J7030; J7050; J7620; J7626

== ENCOUNTER 2021-03-27 14:57 | Inpatient (IN) ==
[~2021-03-27 14:57] MED LIST: STERILE WATER IRRIGATION IR ONE
[2021-03-27] MEDS ORDERED: NS 1,000 ML IV 1,000 ML ONE (15:53)
[2021-03-27] MEDS ORDERED: MAGNESIUM SULFATE 40 GRAMS IV 40 G/1,000 ML BAG IV ONE (15:54)
[2021-03-27 16:03] LABS: BILIRUBIN,URINE NEGATIVE (NEGATIVE); BLOOD/HEMOGLOBIN,URINE 4+ (NEGATIVE); GLUCOSE, URINE NEGATIVE (NEGATIVE); KETONES,URINE NEGATIVE (NEGATIVE); LEUKOCYTE ESTERASE ,URINE 1+ (NEGATIVE); NITRITES,URINE NEGATIVE (NEGATIVE); PROTEIN,URINE 4+ (NEGATIVE); UROBILINOGEN,URINE NORMAL (NORMAL)
[2021-03-27] MEDS ORDERED: ANCEF VIAL 1 GRAM ONE (16:07)
[2021-03-27] MEDS ORDERED: NS 500 ML IV 500 ML IV ONE (16:08)
[2021-03-27 16:09] LABS: BASOPHILS # (AUTO) 0.1 X10^3/uL (0.0-0.1); BASOPHILS % (AUTO) 0.4 % (0.2-1.0); BLOOD UREA NITROGEN 15 mg/dL (7-18); CALCIUM 7.7 mg/dL (8.5-10.1); CARBON DIOXIDE 18.2 mmol/L (21-32); CHLORIDE 108 mmol/L (98-107); COR NA(FOR HYPERGLY) 141 mmol/L (136-145); CREATININE 1.03 mg/dL (0.55-1.02); EOSINOPHILS % (AUTO) 0.1 % (0.9-2.9); HEMATOCRIT 34.5 % (36.0-47.0); HEMOGLOBIN 12.1 g/dL (12.0-16.0); LYMPHOCYTES # (AUTO) 1.2 X10^3/uL (1.3-2.9); LYMPHOCYTES % (AUTO) 5.1 % (21.0-51.0); MEAN CORPUSCULAR VOLUME 94.4 fL (80.0-100.0); MEAN PLATELET VOLUME 9.5 fL (7.4-11.0); MONOCYTES # (AUTO) 0.8 x10^3/uL (0.3-0.8); MONOCYTES % (AUTO) 3.6 % (0.0-13.0); NEUTROPHILS # (AUTO) 20.9 x10^3/uL (2.2-4.8); NEUTROPHILS % (AUTO) 90.8 % (42.0-75.0); RED BLOOD COUNT 3.65 X10^6/uL (3.5-5.4); RED CELL DISTRIBUTION WIDTH 13.4 % (11.6-16.5); SODIUM 140 mmol/L (136-145); eGFR NON BLACK RACES > 60 (>60)
[2021-03-27 16:15] LABS: URIC ACID 10.6 mg/dL (2.6-6.0)
[2021-03-27 16:19] LABS: AMNISURE ROM TEST NO MEMBRANES RUPTURE (NO RUPTURE)
[2021-03-27 16:21] LABS: APPEARANCE,URINE SLIGHTLY HAZY (CLEAR); BACTERIA,URINE 1+ /HPF (NEGATIVE); COLOR,URINE YELLOW (YELLOW); HYALINE CASTS, URINE MODERATE /LPF (NEGATIVE); SQUAMOUS EPITHELIAL CELL,UR MODERATE /HPF (NEGATIVE)
[2021-03-27 16:30] LABS: RAPID PLASMA REAGIN NONREACTIVE (NONREACTIVE)
[2021-03-27] MEDS ORDERED: QUELICIN (OR ANECTINE) ONE (16:40)
[2021-03-27] MEDS ORDERED: BRIDION ONE (16:40)
[2021-03-27] MEDS ORDERED: DIPRIVAN VIAL 20 ML ONE (16:40)
[2021-03-27] MEDS ORDERED: ZEMURON 100 MG VIAL ONE (16:40)
[2021-03-27 16:41] VITALS: BMI 53.1
[2021-03-27] MEDS ORDERED: FENTANYL VIAL INJ 250 mcg ONE (16:41)
[2021-03-27] MEDS ORDERED: BICITRA 30 ML PO ONE (16:41)
[2021-03-27 16:48] LABS: PLATELET MORPHOLOGY COMMENT NORMAL (NORMAL)
[2021-03-27] MEDS ORDERED: PITOCIN ONE ×2 (16:59→17:34)
[2021-03-27] MEDS ORDERED: TORADOL 30 MG VIAL ONE (17:14)
[2021-03-27] MEDS ORDERED: D5 LR 1,000 ML 1,000 ML IV ONE (17:34)
[2021-03-27] MEDS ORDERED: ZOFRAN INJ 4 MG VIAL IVP PRN ×2 (17:53→18:54)
[2021-03-27] MEDS ORDERED: BENADRYL INJ 50 MG VIAL IVP PRN (17:53)
[2021-03-27] MEDS ORDERED: PHENERGAN INJ 25 MG IM PRN ×2 (17:53→18:54)
[2021-03-27] MEDS ORDERED: DILAUDID INJ IVP PRN (17:53)
[2021-03-27] MEDS ORDERED: BARHEMSYS INJ IVP PRN (17:53)
[2021-03-27] MEDS ORDERED: REGLAN INJ 10 MG VIAL IVP PRN (17:53)
[2021-03-27] MEDS ORDERED: NORMODYNE INJ 20 MG VIAL IVP PRN (18:41)
[2021-03-27] MEDS ORDERED: BENADRYL CAP/TAB 25 MG PO PRN (18:54)
[2021-03-27] MEDS ORDERED: PERCOCET TAB 5/325 MG PO PRN (18:54)
[2021-03-27] MEDS ORDERED: MAGNESIUM SULFATE 40 GRAMS IV 40 G/1,000 ML BAG IV PRN (18:54)
[2021-03-27] MEDS ORDERED: MYLICON TAB 80 MG CHEW PO PRN (18:54)
[2021-03-27] MEDS ORDERED: ADACEL or BOOSTRIX TDaP VACCINE IM ONE (18:54)
[2021-03-27] MEDS ORDERED: MOTRIN TAB 800 MG PO PRN (18:54)
[2021-03-27] MEDS ORDERED: D5 1/2 NS 1,000 ML 1,000 ML with PITOCIN 20 UNITS IV SCH ×2 (19:00)
[2021-03-27] MEDS ORDERED: D5 LR 1,000 ML 1,000 ML IV SCH (20:00)
[2021-03-27] MEDS: TORADOL 30 MG VIAL IVP SCH (20:02)
[2021-03-27] MEDS ORDERED: COLACE CAP 100 MG PO SCH (21:00)
[2021-03-27] MEDS ORDERED: NARCAN INJ ONE (23:47)
[2021-03-27 23:52] LABS: ABG ALLEN TEST POS; ABG BASE EXCESS -16.8 mmol/L (-2.0-2.0)
[2021-03-28] MEDS ORDERED: NS 1,000 ML IV 1,000 ML ONE ×3 (00:25→03:41)
[2021-03-28] MEDS ORDERED: VERSED ONE (00:48)
[2021-03-28] MEDS ORDERED: QUELICIN (OR ANECTINE) ONE (00:49)
[2021-03-28 00:51] LABS: BASOPHILS # (AUTO) 0.1 X10^3/uL (0.0-0.1); BASOPHILS % (AUTO) 0.2 % (0.2-1.0); HEMOGLOBIN 7.2 g/dL (12.0-16.0); LYMPHOCYTES # (AUTO) 2.5 X10^3/uL (1.3-2.9); MEAN CORPUSCULAR HEMOGLOBIN 32.6 pg (27.0-34.0); MEAN CORPUSCULAR HGB CONC 32.8 g/dL (33.0-35.0); MEAN CORPUSCULAR VOLUME 99.4 fL (80.0-100.0); MONOCYTES # (AUTO) 0.5 x10^3/uL (0.3-0.8); MONOCYTES % (AUTO) 2.2 % (0.0-13.0); NEUTROPHILS # (AUTO) 22.2 x10^3/uL (2.2-4.8); NEUTROPHILS % (AUTO) 87.6 % (42.0-75.0); RED BLOOD COUNT 2.22 X10^6/uL (3.5-5.4); RED CELL DISTRIBUTION WIDTH 14.1 % (11.6-16.5); WHITE BLOOD COUNT 25.3 X10^3/uL (3.6-10.0)
[2021-03-28 00:52] LABS: ANISOCYTOSIS 1+; BAND NEUTROPHILS % 3 % (0-10); HYPOCHROMASIA SLIGHT; PLATELET MORPHOLOGY COMMENT NORMAL (NORMAL)
[2021-03-28] MEDS ORDERED: LASIX IVP ONE ×2 (00:52→02:03)
[2021-03-28] MEDS ORDERED: VERSED IVP ONE (00:53)
[2021-03-28] MEDS ORDERED: QUELICIN (OR ANECTINE) IVP ONE (00:54)
[2021-03-28 00:55] LABS: CALCIUM 7.1 mg/dL (8.5-10.1); CREATININE 1.84 mg/dL (0.55-1.02)
[2021-03-28] MEDS ORDERED: DIPRIVAN PREMIX 1 GRAM IV 1,000 MG/100 ML VIAL ONE (01:06)
[2021-03-28] MEDS ORDERED: LEVOPHED 8 MG/250 ML IV *PREMIX 8 MG/250 ML PLAST..BAG IV ONE (01:06)
[2021-03-28] MEDS ORDERED: LEVOPHED INJ (VIAL) 8 MG in D5W 250 ML IV 242 ML IV PRN (01:20)
[2021-03-28] MEDS ORDERED: NovoLIN R (or HumuLIN R) IV ONE (01:34)
[2021-03-28] MEDS ORDERED: NovoLIN R (or HumuLIN R) ONE (01:35)
[2021-03-28] MEDS ORDERED: SODIUM BICARBONATE 8.4% INJ ADULT IVP ONE (01:36)
[2021-03-28 01:40] LABS: ALBUMIN 1.5 g/dL (3.4-5.0); COR CA(FOR HYPOALB) 9.1 mg/dL (8.5-10.1)
[2021-03-28] MEDS ORDERED: SODIUM BICARBONATE 8.4% INJ ADULT ONE ×2 (01:40→05:27)
[2021-03-28] MEDS ORDERED: DIPRIVAN PREMIX 1 GRAM IV 1,000 MG/100 ML VIAL IV PRN (01:40)
[2021-03-28 01:41] LABS: CKMB % 3.3 % (<4); CREATINE KINASE MB 11.6 ng/mL (0-4.0)
--- NOTE | 2021-03-28 02:02 | RAD ---
HISTORYcentral line placement PMH: NONE [email or web address] NONESTUDYCHEST, 1 [id number] trachea is midline. Endotracheal tube tip above the nitish. Left central line tip in SVC. The cardiac silhouette is unremarkable. The lungs are clear without focal infiltrate or effusion. Pulmonary vasculature within normal limits. No pneumothorax. The bony thorax is unremarkable.IMPRESSIONCentral line and ET tube as described.No active cardiopulmonary disease.Electronically signed by: Yousuf Purvis (Mar 28, 2021 02:01:01)
[2021-03-28] MEDS: TORADOL 30 MG VIAL IVP SCH (02:23)
[2021-03-28 02:24] LABS: HEMATOCRIT 22.6 % (36.0-47.0); HEMOGLOBIN 7.4 g/dL (12.0-16.0)
[2021-03-28] MEDS ORDERED: NARCAN INJ IVP ONE (02:27)
[2021-03-28] MEDS ORDERED: NS 250 ML IV 250 ML IV ONE ×2 (02:31→03:29)
[2021-03-28 02:36] LABS: MEAN PLATELET VOLUME 9.9 fL (7.4-11.0)
[2021-03-28] MEDS ORDERED: VASOSTRICT INJ 20 UNITS VIAL 40 UNITS in NS 100 ML IV 100 ML IV PRN (02:37)
[2021-03-28] MEDS ORDERED: SALINE 3% 15 ML NEB TX ONE (02:38)
[2021-03-28] MEDS ORDERED: SALINE 3% 15 ML NEB TX NEB ONE (02:50)
[2021-03-28] MEDS ORDERED: NS 100 ML IV 100 ML ONE (03:02)
[2021-03-28] MEDS: VASOSTRICT INJ 20 UNITS VIAL 40 UNITS in NS 100 ML IV 100 ML IV PRN ×2 (03:07→03:37)
[2021-03-28] MEDS ORDERED: ADRENALINE CHL INJ ONE (03:28)
[2021-03-28] MEDS ORDERED: NS IV SCH ×2 (03:45)
[2021-03-28] MEDS ORDERED: ADRENALINE CHL IV SCH ×2 (03:45)
[2021-03-28 05:12] LABS: ABG BASE EXCESS -26.6 mmol/L (-2.0-2.0)
[2021-03-28 05:13] LABS: ABG ALLEN TEST POS; ABG HCO3 5.8 mmol/L (22-26)
[2021-03-28] MEDS ORDERED: SODIUM BICARBONATE IV ONE ×2 (05:23)
[2021-03-28] MEDS ORDERED: D5 LR IV ONE ×2 (05:23)
[2021-03-28] MEDS ORDERED: D5 LR 1,000 ML 1,000 ML IV ONE (05:26)
[2021-03-28] MEDS ORDERED: NS 1,000 ML IV 1,000 ML IV SCH (06:00)
[2021-03-28 07:29] VITALS: BP 107/69
[2021-03-28] MEDS ORDERED: PRENATAL PLUS PO SCH (09:00)
--- NOTE | 2021-03-28 10:18 | DR.OPNOTE ---
OP NOTE Pre-Op Diagnosis: Eclampsia, need for IV access Post-Op Diagnosis: same Procedure Date Date Of Procedure: 03/28/21 Procedure: PROCEDURE: Placement left subclavian vein triple Lumen catheter NARRATIVE : The patient was already intubated and supine . She was placed in Trendelenburg position and the left subclavian area and left neck prepped and draped in sterile fashion. Skin underlying the left clavicle infiltrated with 1% Xylocaine and 16 gauge needle used to puncture the left subclavian vein and guide wire placed without difficulty. Incision made over the guide wire with a # 11 knife blade and dilator placed over the guide wire into the left subclavian vein. Dilator removed and the triple Lumen catheter placed over the guide wire. Guide wire removed. All ports aspirated of blood and flushed with heparinized saline .CXR obtained and showed good placement of the central venous catheter with no pneumothorax . Type of Anesthesia: Local (1 % Xylocaine) Anesthesia Comment: Patient already intubated Findings: as above EBL: minimal Complications:: none Needle/Sponge Count:: correct, CXR post procedure shows good placement of left subclavian central venous access and no pneumothorax Disposition/Condition: Pt. tolerated procedure without difficulty.
[2021-03-28] MEDS ORDERED: TORADOL 15 MG VIAL IVP PRN (17:00)
== END 2021-03-28 08:00 | disposition expired | DRG 788 ==
LOC: ER 14:57 → LD 16:32 → MED/SURG 18:16 → ICU 03-28 02:49
PROVIDERS: ADMIT Obstetrics & Gynecology; ATTEND Obstetrics & Gynecology
DX: O34.211 Maternal care for low transverse scar from previous cesarean delivery; I46.9 Cardiac arrest, cause unspecified; O99.350 Diseases of the nervous system complicating pregnancy, unspecified trimester; Z37.0 Single live birth; F15.90 Other stimulant use, unspecified, uncomplicated; Z3A.00 Weeks of gestation of pregnancy not specified; O14.14 Severe pre-eclampsia complicating childbirth; O60.10X0 Preterm labor with preterm delivery, unspecified trimester, not applicable or unspecified; O99.323 Drug use complicating pregnancy, third trimester; F11.90 Opioid use, unspecified, uncomplicated; Z20.822 Contact with and (suspected) exposure to COVID-19; N85.8 Other specified noninflammatory disorders of uterus; F19.90 Other psychoactive substance use, unspecified, uncomplicated; O45.8X3 Other premature separation of placenta, third trimester